=== PATIENT | male | born 2000 | race Caucasian/White ===

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

== ENCOUNTER 2018-06-26 10:16 | Emergency (ER) | payer OTHER ==
[~2018-06-26] VITALS: Ht 177.8 cm; Wt 78.9 kg
[2018-06-26] MEDS ORDERED: Adderall 15 MG15 MG PO (10:27)
[2018-06-26] MEDS ORDERED: PRAZ1 PO (10:27)
[2018-06-26] MEDS ORDERED: RISP1 PO (10:27)
[2018-06-26] MEDS ORDERED: ESCI10 PO (10:27)
[2018-06-26] MEDS ORDERED: Trileptal300 MG PO (10:27)
[2018-06-26] MEDS ORDERED: TIVICAY50 MG PO (11:43)
[2018-06-26] MEDS ORDERED: TRUVADA 167 MG1 EACH PO (11:43)
[2018-06-27 08:07] LABS: HIV SCREEN 4TH GENERATION WRFX Non Reactive (Non Reactive)
[2018-06-27 11:06] LABS: HCV ANTIBODY 0.1 (0.0-0.9)
== END 2018-06-26 11:53 | disposition home or self-care (01) ==
LOC: ER 10:16
PROVIDERS: Physician Assistant
DX: S91.031A Puncture wound without foreign body, right ankle, initial encounter (principal); W46.0XXA Contact with hypodermic needle, initial encounter; Z88.2 Allergy status to sulfonamides; Z79.899 Other long term (current) drug therapy; F90.9 Attention-deficit hyperactivity disorder, unspecified type; G40.909 Epilepsy, unspecified, not intractable, without status epilepticus; F31.9 Bipolar disorder, unspecified; Z23 Encounter for immunization
CPT/HCPCS: 84460; 86317; 86803; 87389; 90471; 90744; 99282

== ENCOUNTER 2018-08-02 18:35 | Emergency (ER) | payer OTHER ==
[~2018-08-02] VITALS: Ht 180.3 cm; Wt 81.7 kg
[~2018-08-02 18:35] MED LIST: Adderall 15 MG15 MG PO; ESCI10 PO; PRAZ1 PO; RISP1 PO; TIVICAY50 MG PO; TRUVADA 167 MG1 EACH PO; Trileptal300 MG PO
== END 2018-08-02 20:13 | disposition home or self-care (01) ==
LOC: ER 18:35
DX: S09.90XA Unspecified injury of head, initial encounter (principal); Y04.0XXA Assault by unarmed brawl or fight, initial encounter; Z88.2 Allergy status to sulfonamides; Z79.899 Other long term (current) drug therapy; F32.9 Major depressive disorder, single episode, unspecified; F41.9 Anxiety disorder, unspecified
CPT/HCPCS: 99284

== ENCOUNTER 2018-08-10 07:05 | Emergency (ER) | payer OTHER ==
[~2018-08-10] VITALS: Ht 180.3 cm; Wt 77.1 kg
[2018-08-10] MEDS ORDERED: ONDA4ODT MM (08:30)
== END 2018-08-10 08:39 | disposition home or self-care (01) ==
LOC: ER 07:05
DX: F07.81 Postconcussional syndrome (principal); Z88.2 Allergy status to sulfonamides; Z79.899 Other long term (current) drug therapy; F31.9 Bipolar disorder, unspecified; F32.9 Major depressive disorder, single episode, unspecified; F41.9 Anxiety disorder, unspecified
CPT/HCPCS: 99283

== ENCOUNTER 2018-10-28 04:32 | Emergency (ER) | payer OTHER ==
[~2018-10-28] VITALS: Ht 180.3 cm; Wt 85.7 kg
[~2018-10-28 04:32] MED LIST changes: +ONDA4ODT MM
[2018-10-28] MEDS ORDERED: IBUP800 PO (06:40)
== END 2018-10-28 06:50 | disposition home or self-care (01) ==
LOC: ER 04:32
DX: S93.401A Sprain of unspecified ligament of right ankle, initial encounter (principal); F41.9 Anxiety disorder, unspecified; F32.9 Major depressive disorder, single episode, unspecified; Z88.2 Allergy status to sulfonamides; W18.42XA Slipping, tripping and stumbling without falling due to stepping into hole or opening, initial encounter
CPT/HCPCS: 73610; 73630; 99283-25